=== PATIENT | female | born 1945 | race Caucasian/White ===

== ENCOUNTER → 2017-06-04 | Outpatient (CLI) | payer MEDICARE, BC ==
[~2017-06-04] MED LIST: ASPIRIN PO; ASPIRIN81 M2 PO; BACTRIM DS TABL1 TA1 PO; CALCIUM 500 + D1 TAB PO; CENTRUM SILVER PO; FISH OIL 1,0001 CAP PO; FISH OIL 1,2001 EAC1 PO; HCTZ PO; LISINOPRIL PO; LORTAB 5/500 TA1 TA1 PO; NORVASC PO; VICODIN 5/500 T1 TAB PO; VIT B-12 PO; VITAMIN B12-FO1 EACH PO; VITAMIN C500 M1 PO
[2017-06-04 09:57] LABS: BILIRUBIN, DIRECT 0.1 mg/dL (0.0-0.2); BILIRUBIN,INDIRECT 0.8 mg/dL (0.0-0.9); BILIRUBIN,TOTAL 0.9 mg/dL (0.2-2.0); PROTEIN TOTAL SERUM 6.8 g/dL (6.0-8.3)
== END | disposition home or self-care (01) ==
LOC: SLAB 09:19
PROVIDERS: Podiatrist Foot & Ankle Surgery
DX: Z51.81 Encounter for therapeutic drug level monitoring (principal); Z79.899 Other long term (current) drug therapy
CPT/HCPCS: 36415; 80076

== ENCOUNTER → 2017-07-29 | Outpatient (CLI) | payer MEDICARE, BC ==
--- NOTE | ~2017-07-29 | US6 ---
[facility] A Service of [facility] RADIOLOGY TEXT RESULTS PATIENT: CARRIE RUIZ LOCATION: [facility] : 43 UNIT #: [id number] AGE: [address]: Chiara Hess MD SEX: F ORDER DR: [id number] [place] [id number] O MR#: [id number] Acc #: [id number] NAME: CARRIE RUIZ : 1945 SEX: F STUDY DATE/TIME: 07/29/2017 8:41 UNIT: [facility] ROOM: STUDY DESCRIPTION: US Abdominal Limited Attending Physician: Chiara Hess M.D. Referring Physician: Chiara Hess M.D. Ordering Physician: Chiara Hess M.D. Primary Care Physician: Chiara Hess M.D. MEDICAL IMAGING REPORT This report is preliminary unless electronic signature is present. EXAM Right upper quadrant abdominal ultrasound INDICATIONS Elevated liver enzyme levels for the past 2 weeks. PROCEDURE Rodriguez-scale and Doppler imaging right upper quadrant of the abdomen. FINDINGS Visualized portions of the pancreas are unremarkable. The liver measures 16.5 cm and has increased echotexture compared with the right kidney. No liver mass is seen on submitted images. There are multiple stones in the gallbladder. No appreciable gallbladder wall thickening or pericholecystic fluid. The common duct measures 2 mm. Right kidney measures 10.5 cm, no hydronephrosis. IMPRESSION 1. Extensive cholelithiasis but no appreciable evidence for acute inflammation. 2. Increased liver echotexture in keeping with steatosis Dictated by... Theo Van M.D. THIS IS AN ELECTRONICALLY VERIFIED REPORT Theo Van M.D. at 07/30/2017 8:05 AM LORENA/jonny TD: 07/29/2017 14:48 JOB #: [id number] [facility] A Service of [facility] RADIOLOGY TEXT RESULTS PATIENT: CARRIE RUIZ [facility] #: [id number] : 43 UNIT #: [id number] AGE: [address]: Chiara eHss MD SEX: F ORDER DR: MEDICAL IMAGING REPORT Page 1 of 1
== END | disposition home or self-care (01) ==
LOC: SGUS 08:25
DX: R79.89 Other specified abnormal findings of blood chemistry (principal); K80.20 Calculus of gallbladder without cholecystitis without obstruction; R93.2 Abnormal findings on diagnostic imaging of liver and biliary tract
CPT/HCPCS: 76705